=== PATIENT | male | born 1955 | race Caucasian/White ===

== ENCOUNTER → 2016-12-16 | Outpatient (CLI) | payer OTHER ==
[2016-12-16 10:07] LABS: CH 34.6; CHCM 33.7; HCT 46.5 % (39.0-53.0); HDW 2.52; HGB 15.7 gm/dL (13.0-17.5); MCH 34.8 pg (25.0-35.0); MCHC 33.8 g/dL (31.0-37.0); MCV 103.2 fL (80.0-100.0); Macrocytosis Slight; Mean Platelet Volume 7.1; WBC 6.3 k/uL (3.8-10.6)
[2016-12-16 11:20] LABS: Anion Gap 10 mmol/L; Blood Urea Nitrogen 16 mg/dL (9-20); Carbon Dioxide 24 mmol/L (22-30); Chloride 106 mmol/L (98-107); Non-African American GFR(MDRD) >60 (>60 ml/min/1.73 sqM); Potassium 5.1 mmol/L (3.5-5.1); Sodium 140 mmol/L (137-145)
== END | disposition home or self-care (01) ==
LOC: LABPAT 09:33
PROVIDERS: ATTEND Internal Medicine Interventional Cardiology
DX: Z01.812 Encounter for preprocedural laboratory examination (principal); R94.39 Abnormal result of other cardiovascular function study
CPT/HCPCS: 80051; 82565; 84520; 85027

== ENCOUNTER 2017-01-03 06:25 | Day surgery (SDC) | payer OTHER ==
[2016-12-30 11:50] VITALS: BMI 33.7
[~2017-01-03 06:25] MED LIST: ALPRAZolam 0.25 MG TAB PO PRN; ALPRAZolam 0.5 MG TAB PO PRN; ASPIRIN 325 MG TAB PO STA; ATORVASTATIN 80 MG TAB PO STA; NITROGLYCERIN SL TABS 0.4 MG TAB SUBLINGUAL PRN; SODIUM CHLORIDE 0.9% 1,000 ML in EMPTY BAG 1 BAG IV ONE
[2017-01-03 06:58] VITALS: TEMP 97.8
[2017-01-03] MEDS ORDERED: MIDAZOLAM 2 MG/2 ML VIAL ONE (07:13)
[2017-01-03] MEDS ORDERED: VERAPAMIL 2.5 MG/ML 2 ML AMP ONE (07:13)
[2017-01-03] MEDS ORDERED: LIDOCAINE 2% INJ 20 MG/ML (20 ML MDV) ONE (07:14)
[2017-01-03] MEDS ORDERED: diphenhydrAMINE 50 MG/ML 1 ML VIAL ONE (07:14)
[2017-01-03] MEDS ORDERED: diphenhydrAMINE 50 MG/ML 1 ML VIAL IVP ONE (07:39)
[2017-01-03] MEDS: MIDAZOLAM 2 MG/2 ML VIAL IV ONE ×2 (07:39→07:41)
[2017-01-03] MEDS ORDERED: HEPARIN SODIUM 1,000 UNIT/ML VIAL ONE (07:43)
[2017-01-03] MEDS ORDERED: LIDOCAINE 2% INJ 20 MG/ML SQ ONE (07:44)
[2017-01-03] MEDS ORDERED: HEPARIN SODIUM 1,000 UNIT/ML VIAL IV ONE (07:51)
[2017-01-03] MEDS: VERAPAMIL SYRINGE (5 MG/10 ML) IV ONE ×2 (07:51→08:08)
[2017-01-03] MEDS ORDERED: IOHEXOL 350 MG/ML 100 ML BOTTLE INJ ONE ×2 (08:04)
[2017-01-03] MEDS ORDERED: RX INFO: IV CONTRAST WAS GIVEN 1 EACH MISC MISCELLANE PRN (08:14)
[2017-01-03] MEDS ORDERED: SODIUM CHLORIDE 0.9% 1,000 ML IV SCH (08:15)
[2017-01-03 14:33] VITALS: BP 123/94; PULSE 101; RESP 18
--- NOTE | 2017-01-03 18:30 | CC ---
DATE OF SERVICE: 01/03/2017 PROCEDURE: Left heart catheterization, coronary angiography and left ventriculography. PERFORMED BY: Dr. Ginna Tirado. CLINICAL INFORMATION: Mr. Sy Shah is a 61-year-old gentleman with a known history of paroxysmal atrial flutter, status post radiofrequency ablation performed in the past. He also has paroxysmal atrial fibrillation, was on anticoagulation, but stopped it on his own. He came in to see me a few weeks ago with symptoms suggestive of exertional shortness of breath, and also there was evidence of AVNRT type picture as well on the Holter monitor. A stress test revealed a moderate-sized inferior wall ischemia with Lexiscan. He was advised cardiac catheterization prior to any electrophysiological procedures. He was brought in for the procedure electively. Risks, benefits, options and rationale were discussed with the patient and his at length. PROCEDURE NOTE: Under local anesthesia and strict aseptic precautions, a 6 Austrian introducer was placed in the right radial artery. Using an Ultima 2 catheter, I performed selective coronary angiography of the left coronary artery. Using a JR3.5, I performed selective injection of the right coronary. A pigtail catheter was used to perform LV gram. The catheter and sheath was taken out and a TR band applied as per protocol. Patient received 4000 units of heparin intravenously. He tolerated the procedure well without complications. He received conscious sedation and was monitored for half an hour. He received a combination of Versed and also Benadryl. CARDIAC CATHETERIZATION FINDINGS The left ventricular end-diastolic pressure was about 14 to 15 mmHg without any gradient across the aortic valve. CORONARY ANGIOGRAPHIC FINDINGS The left main coronary artery is a very short, patent, disease-free vessel that bifurcates into LAD and circumflex. Left anterior descending coronary artery is a good-caliber vessel that extends along the anterior wall, gives off a diagonal branch proximally. Free of significant disease, then it gives off a second diagonal branch, then another smaller third diagonal branch, then runs all the way to the apex, supplying a sizable amount of myocardium. All 3 diagonals are free of significant disease. A large septal is free of significant disease. There are minor irregularities in the LAD, which is a fairly large-distribution vessel. No significant disease is noted. Left posterior circumflex coronary artery. Technically a non-dominant vessel, it has a mid lesion of about 40% to 45%, after which it gives off an obtuse marginal and then continues as a posterolateral branch. Other than the mid lesion of about 40% to 45%, there were no other significant lesions noted in the circumflex system. Right coronary artery. This is a dominant vessel, has minor irregularities, about a 30% proximal narrowing, distally gives off a large PDA, a smaller PLV; minor irregularities. No significant disease. The RCA is a dominant vessel with a large PDA, but PLV is a very small vessel. No significant disease is noted. LEFT VENTRICULOGRAM: This was performed in 30-degree ALVAREZ projection. The LV was not filled completely. Catheter was almost in the outflow tract, but overall ejection fraction is about 50% without clear-cut wall motion abnormality. There is no mitral regurgitation of significance noted. FINAL IMPRESSION: This patient has a right-dominant system that has a 40% to 45% mid circumflex lesion and 50% ejection fraction. No other significant disease in the dominant RCA or LAD is noted. RECOMMENDATIONS: I am recommending continued medical therapy with risk factor modification. No intervention. He will be referred to Electrophysiology for EP studies and possible ablation for AVNRT and also assessment regarding atrial fibrillation intervention. I discussed my thoughts in detail with the patient as well as his . I expect he will be discharged later on today if he remains stable.
--- NOTE | 2017-01-03 18:34 | LTR ---
January 03, 2017 RE: Sy Shah Dear Dr. Arguelles, Thank you for the opportunity to participate in the care of Mr. Sy Shah. Please find enclosed my cardiac catheterization report for your records. He has non-critical moderate CAD in circumflex. I am recommending medical therapy with risk factor modification. His electrophysiological problems will be addressed by Dr. Hannah. 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 His stress test was probably a false positive one. I will also obtain echocardiogram to assess wall motion abnormalities, since my LV gram did not give me a good picture of this. Thank you for the referral. Please call with questions. Sincerely, FAITH OKEEFE MD
--- NOTE | 2017-01-04 12:40 | ECHOF ---
Referral Reason:CAD, AFIB MEASUREMENTS -------- HEIGHT: 185.4 cm WEIGHT: 122.5 kg BP: IVSd: 1.4 cm (0.6 - 1.1) LVIDd: 3.5 cm (3.9 - 5.3) LVPWd: 1.3 cm (0.6 - 1.1) IVSs: 1.6 cm LVIDs: 1.8 cm LVPWs: 1.6 cm Ao Diam: 3.5 cm (2.0 - 3.7) AV Cusp: 2.3 cm (1.5 - 2.6) LA Diam: 3.6 cm (2.7 - 3.8) MV EXCURSION: 15.965 mm (> 18.000) MV EF SLOPE: 133 mm/s (70 - 150) EPSS: 0.6 cm RAP: 5.00 mmHg RVSP: 12.43 mmHg FINDINGS -------- Atrial fibrillation. This was a technically adequate study. The left ventricular size is normal. There is moderate concentric left ventricular hypertrophy. Overall left ventricular systolic function is normal with, an EF between 55 - 60 %. The right ventricle is normal in size and function. The left atrium is normal in size. The right atrium is normal in size. The aortic valve is trileaflet, and appears structurally normal. No aortic stenosis or regurgitation. The mitral valve leaflets are mildly thickened. Mild mitral regurgitation is present. Trace tricuspid regurgitation present. The right ventricular systolic pressure, as measured by Doppler, is 12.43mmHg. The pulmonic valve was not well visualized. The aortic root size is normal. There is no pericardial effusion. CONCLUSIONS -------- 1. Atrial fibrillation. 2. The right ventricular systolic pressure, as measured by Doppler, is 12.43mmHg. 3. The pulmonic valve was not well visualized. 4. The aortic root size is normal. 5. There is no pericardial effusion. 6. This was a technically adequate study. 7. There is moderate concentric left ventricular hypertrophy. 8. Overall left ventricular systolic function is normal with, an EF between 55 - 60 %. 9. The left atrium is normal in size. 10. The aortic valve is trileaflet, and appears structurally normal. No aortic stenosis or regurgitation. 11. The mitral valve leaflets are mildly thickened. 12. Mild mitral regurgitation is present. 13. Trace tricuspid regurgitation present. HAND III CUTTER: Sonia Jason RDCS
== END 2017-01-03 14:40 | disposition home or self-care (01) ==
LOC: CATHCVL 06:25
PROVIDERS: ATTEND Internal Medicine Interventional Cardiology
DX: I48.0 Paroxysmal atrial fibrillation (principal); I08.1 Rheumatic disorders of both mitral and tricuspid valves; I25.10 Atherosclerotic heart disease of native coronary artery without angina pectoris; Z82.49 Family history of ischemic heart disease and other diseases of the circulatory system; R55 Syncope and collapse; F17.210 Nicotine dependence, cigarettes, uncomplicated; Z79.82 Long term (current) use of aspirin; Z79.52 Long term (current) use of systemic steroids; Z79.899 Other long term (current) drug therapy
CPT/HCPCS: 93306; 93458; 99152; 99153; C1769; C1894; J2001; J2250; J1200; Q9967; J1644

== ENCOUNTER 2017-02-03 09:12 | Observation (INO) | payer OTHER ==
[2017-02-02 11:09] VITALS: BMI 34.3
[~2017-02-03 09:12] MED LIST changes: -ALPRAZolam 0.25 MG TAB PO PRN; -ALPRAZolam 0.5 MG TAB PO PRN; -ASPIRIN 325 MG TAB PO STA; -ATORVASTATIN 80 MG TAB PO STA; -NITROGLYCERIN SL TABS 0.4 MG TAB SUBLINGUAL PRN; +SODIUM CHLORIDE 0.9% 1,000 ML IV SCH; -SODIUM CHLORIDE 0.9% 1,000 ML in EMPTY BAG 1 BAG IV ONE
[2017-02-03] MEDS ORDERED: LACTATED RINGERS 1,000 ML IV SCH (09:25)
[2017-02-03 09:52] LABS: Basophils # (A) 0.1 k/uL (0-0.2); Basophils % (A) 1 %; CH 35.6; CHCM 34.3; Eosinophils # (A) 0.2 k/uL (0-0.7); Eosinophils % (A) 3 %; HCT 49.6 % (39.0-53.0); HDW 2.43; HGB 16.3 gm/dL (13.0-17.5); Luc # (Auto) 0.13; Luc % (Auto) 2; Lymphocytes # (A) 2.1 k/uL (1.0-4.8); Lymphocytes % (A) 33 %; MCH 34.2 pg (25.0-35.0); MCHC 32.9 g/dL (31.0-37.0); MCV 104.2 fL (80.0-100.0); Macrocytosis Slight; Mean Platelet Volume 6.6; Monocytes # (A) 0.3 k/uL (0-1.0); Monocytes % (A) 5 %; Neutrophils # (A) 3.6 k/uL (1.3-7.7); Neutrophils % (A) 57 %; RBC 4.76 m/uL (4.30-5.90); RDW 14.3 % (11.5-15.5); WBC 6.3 k/uL (3.8-10.6); WBC (Perox) 6.07
[2017-02-03 10:01] LABS: Anion Gap 7 mmol/L; Blood Urea Nitrogen 13 mg/dL (9-20); Calcium 9.3 mg/dL (8.4-10.2); Carbon Dioxide 24 mmol/L (22-30); Chloride 110 mmol/L (98-107); Glucose 103 mg/dL (74-99); Non-African American GFR(MDRD) >60 (>60 ml/min/1.73 sqM); Sodium 141 mmol/L (137-145)
[2017-02-03 10:04] LABS: Potassium 4.5 mmol/L (3.5-5.1)
[2017-02-03] MEDS ORDERED: HYDROmorphone (PF) 1 MG/ML ONE (10:54)
[2017-02-03] MEDS ORDERED: ONDANSETRON 4 MG/2 ML VIAL ONE (10:54)
[2017-02-03] MEDS ORDERED: MIDAZOLAM 2 MG/2 ML VIAL ONE (10:54)
[2017-02-03] MEDS ORDERED: PROPOFOL 10 MG/ML 20 ML VIAL IV ONE (10:54)
[2017-02-03] MEDS ORDERED: IV FLUID CONTINUATION 800 ML IV ONE (10:54)
[2017-02-03] MEDS ORDERED: fentaNYL (PF) 50 MCG/ML 2 ML AMP ONE (10:54)
[2017-02-03] MEDS ORDERED: LIDOCAINE URO-JET JELLY 2% 5 ML KIT ONE (11:10)
[2017-02-03] MEDS ORDERED: LIDOCAINE URO-JET JELLY 2% 5 ML KIT URETHRAL ONE (11:22)
[2017-02-03] MEDS ORDERED: IOHEXOL 350 MG/ML 100 ML BOTTLE INJ ONE (11:41)
[2017-02-03] MEDS: LIDOCAINE 2% INJ 20 MG/ML SQ ONE ×2 (11:59→12:06)
[2017-02-03] MEDS ORDERED: ACETAMINOPHEN TAB 325 MG TAB PO PRN (13:55)
--- NOTE | 2017-02-03 14:56 | CE ---
DATE OF SERVICE: This is a 61-year-old male patient who has a history of: 1. Atrial flutter, status post ablation 7 years back and no recurrence. 2. Atrial fibrillation, paroxysmal, symptomatic. 3. 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 He is brought to the EP Lab on for management of SVT. The patient was brought to the EP Lab in a fasting state. Written informed consent was obtained prior to the procedure. He was in atrial fibrillation at the start of the study. A 6 Uzbek sheath was placed in the left ( ) vein and via this a decapolar catheter was positioned in the coronary sinus with pacing and recording. He was in atrial fibrillation. However, the ( ) ECG showed organized atrial activity but intracardiac electrograms are consistent with A. fib. The right ( ) was prepped and draped as per protocol and 3 venous sheaths were placed in the femoral vein via these (high right atrial catheter, HIS bundle catheter and RV catheter was placed.) First at the start of the study he was in atrial fibrillation, electrical cardioversion was performed under conscious sedation. He remained in sinus rhythm for only 10 to 15 seconds and there was recurrence of atrial fibrillation. Therefore, drug infusion was given, IV amiodarone was infused 300 mg over a total of 40 minutes. The patient continued to have paroxysms of atrial fibrillation, but once he had long appearance of sinus rhythm, an EP study was performed. Sinus cycle length 755 ms, QRS 90 ms, QT 371 ms, NJ interval 140 ms, AH interval 61 ms, HV interval 41 ms. Atrial straight pacing of the atrium was performed, straight pacing of the ventricle is performed. There was no evidence for delta waves and no evidence for any eccentric retrograde conduction. The retrograde conduction is midline, burst stimulation was performed in the atrium and the coronary sinus and the right ventricle. Slow pathway was demonstrated with echo beats; however, when ( ) protocol was used, atrial fibrillation was induced, then spontaneously terminated after several minutes. Therefore, a long sheath was placed and a mapping ablation catheter was placed. Three-D mapping was performed. ( ) was identified and tagged and the coronary sinus also was identified and tagged. Both in the roof and the floor, a slow pathway was mapped during periods of sinus rhythm, RF ablation was performed in a slow pathway area, occasional junctional beats are noted. The patient continued to have less and less A. fib as time went along but whenever A. fib was induced during RF ablation, RF would be terminated and would be performed only during sinus rhythm. The NJ interval remained stable. Following this, AV node Wenckebach block was 400 ms and the coronary sinus VA Wenckebach block was also 400 ms. There was no evidence for slow pathway conduction or echo beats. All catheters were then removed. The patient was transferred back to telemetry. Anticoagulation was continued. IMPRESSION: 1. Patient has immediate recurrence of atrial fibrillation following electrical cardioversion requiring IV amiodarone for suppression, so as to enable an EP study and mapping and ablation with slow pathway. 2. Slow pathway ablation at the level of the coronary sinus just outside it anteriorly. PLAN: The patient continues to have paroxysms of atrial fibrillation with immediate recurrence following electrical cardioversion. I would recommend since he also complains of being very symptomatic during these episodes with shortness of breath as well as palpitations, suggest cryoablation should be considered for atrial fibrillation with immediate recurrence following electrical cardioversion.
--- NOTE | 2017-02-03 14:59 | LTR ---
February 03, 2017 RE: Sy Shah Angelita Dear Dr. Arguelles: I had the pleasure of seeing Mr. Sy Shah in electrophysiology followup. Mr. Shah underwent successful ablation of the slow pathway for AV linh re-entry. However, he also has atrial fibrillation and when I cardioverted him electrically, he had immediate recurrence of atrial fibrillation within 5 to 10 seconds suggestive of possible pulmonary vein focus. He is quite symptomatic from atrial fibrillation and besides palpitations, he also becomes very short of breath. I would recommend isolation of the pulmonary veins, possibly cryoablation to him. If you have any questions, please do not hesitate to give me a call. Sincerely, ALISSA HIGGINS MD
[2017-02-03] MEDS ORDERED: ACETAMINOPHEN IV (For NPO) 1,000 MG in EMPTY BAG 1 BAG IVPB ONE (16:00)
[2017-02-03] MEDS ORDERED: ONDANSETRON 4 MG/2 ML VIAL IVP PRN (19:49)
[2017-02-03] MEDS ORDERED: rOPINIRole HCL 4 MG TABLET PO SCH (21:00)
[2017-02-03] MEDS ORDERED: CYCLOBENZAPRINE 10 MG TAB PO SCH (21:00)
[2017-02-03] MEDS ORDERED: HYDROcodone/APAP 5-325MG 1 EACH TAB PO PRN (21:14)
[2017-02-03] MEDS ORDERED: METOCLOPRAMIDE 5 MG/ML 2 ML VIAL IVP PRN (22:17)
[2017-02-03 23:27] VITALS: RESP 18
[2017-02-04] MEDS ORDERED: METOCLOPRAMIDE 5 MG/ML 2 ML VIAL IVP SCH
[2017-02-04] MEDS: METOPROLOL TARTRATE 50 MG TAB PO SCH ×2 (01:56→03:55)
--- NOTE | 2017-02-04 08:28 | P.DS ---
Providers Date of admission: 02/03/17 21:25 Attending physician: Ata Hannah Primary care physician: Sherri [place] Hospital Course: Patient is doing well this morning. He has no chest discomfort no dizziness no lightheadedness No pleuritic chest discomfort no JVD blood pressure is normal 133/75 mmHg Yesterday evening after the SVT ablation he had bursts of A. 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 He continues to have symptomatic episodes despite propafenone yesterday had to use amiodarone 300 mg IV which barely controlled it and gave me time to perform an EP study and mapped the slow pathway in sinus rhythm did he continues to have episodes of atrial fibrillation on the current dose of propafenone at home He came in with atrial fibrillation requiring electrical cardioversion but had immediate recurrence of atrial fibrillation Suggest Resume anticoagulation, resume beta blockers and propafenone Pulmonary vein isolation should be considered I discussed this with the patient Thereafter propafenone should be continued to suppress any extra pulmonary foci of A. fib He may go home today and go back to work on Tuesday Patient Condition at Discharge: Stable Plan - Discharge Summary Discharge Medication List RX: Citalopram Hydrobromide [CeleXA] 20 mg PO DAILY 12/30/16 [History] RX: Fludrocortisone [Florinef] 0.1 mg PO DAILY 12/30/16 [History] RX: Metoprolol Tartrate [Lopressor] 50 mg PO BID 12/30/16 [History] RX: Propafenone [Rythmol] 225 mg PO BID 12/30/16 [History] RX: Rivaroxaban [Xarelto] 20 mg PO DAILY 12/30/16 [History] RX: Cyclobenzaprine [Flexeril] 10 mg PO HS 01/03/17 [History] RX: HYDROcodone/APAP 10-325MG [[place] 10-325] 1 tab PO Q6H PRN 01/03/17 [History] RX: rOPINIRole HCL 4 mg PO HS 01/03/17 [History] RX: Cetirizine HCl [Zyrtec] 10 mg PO DAILY 02/02/17 [History] RX: Cholecalciferol [Vitamin D3] 3,000 unit PO DAILY 02/02/17 [History] RX: Multivitamin with Iron [Multivitamins with Iron] 1 tab PO DAILY 02/02/17 [ History] RX: Vitamin B Complex 1 cap PO DAILY 02/02/17 [History] Cyanocobalamin [Vitamin B-12] 500 mcg PO DAILY 02/03/17 [History] Fexofenadine HCl [Helen Allergy] 180 mg PO DAILY PRN 02/03/17 [History] Activity/Diet/Wound Care/Special Instructions: Post EP study - Ablation instructions 1. Keep access sites dry for 2 days. 2. No heavy lifting or straining for 2 days. 3. Avoid bending the hips repeatedly for 2 days. 4. You may go up and down stairs slowly Call if the following is noted 1. Bleeding, increasing swelling or pain at the access sites. 2. Increasing chest discomfort, especially upon taking a deep breath. 3. Increasing shortness of breath, at rest or with exertion. 4. Undue cough / phlegm 5. Difficulty or pain while swallowing. 6. Pain or change in color in the extremities. 7. Fever, chills, rigors. 8. Increasing headache or neurologic symptoms. 9. Dizziness, fainting, palpitations
[2017-02-04 08:29] VITALS: BP 139/79; PULSE 96; TEMP 98.7
[2017-02-04] MEDS ORDERED: RIVAROXABAN 10 MG TAB PO SCH (09:00)
[2017-02-04] MEDS ORDERED: FLUDROCORTISONE 0.1 MG TAB PO SCH (09:00)
[2017-02-04] MEDS ORDERED: CITALOPRAM HYDROBROMIDE 20 MG TAB PO SCH (09:00)
== END 2017-02-04 11:13 | disposition home or self-care (01) ==
LOC: CATHEP 09:12 → 3OBS 13:44 → CATHEP 21:25
PROVIDERS: ADMIT Internal Medicine Clinical Cardiac Electrophysiology; ATTEND Internal Medicine Clinical Cardiac Electrophysiology
DX: I48.0 Paroxysmal atrial fibrillation (principal); I47.1 Supraventricular tachycardia; I48.92 Unspecified atrial flutter; Z79.82 Long term (current) use of aspirin; Z79.899 Other long term (current) drug therapy; I25.10 Atherosclerotic heart disease of native coronary artery without angina pectoris; Z79.52 Long term (current) use of systemic steroids; E78.5 Hyperlipidemia, unspecified; E66.9 Obesity, unspecified; F17.210 Nicotine dependence, cigarettes, uncomplicated; Z68.34 Body mass index [BMI] 34.0-34.9, adult; Z79.01 Long term (current) use of anticoagulants; G47.33 Obstructive sleep apnea (adult) (pediatric); N40.0 Benign prostatic hyperplasia without lower urinary tract symptoms; G25.81 Restless legs syndrome; F39 Unspecified mood [affective] disorder
CPT/HCPCS: 96365; 93005; 92960; 93623; 93613; 93653; 80048; 85025; G0378 ×2; C1894; C1769; C1730 ×2; C1893; C1732; J2001; J2250; J2765; Q9967; J2405; J3010; J1170; J0131; J2704

== ENCOUNTER 2017-03-22 09:51 | Observation (INO) | payer OTHER ==
[2017-03-17 15:02] VITALS: BMI 34.3
[2017-03-22] MEDS: SODIUM CHLORIDE 0.9% 1,000 ML IV SCH (11:00)
[2017-03-22 11:21] LABS: Basophils % (A) 0 %; CH 35.4; CHCM 33.9; Eosinophils # (A) 0.1 k/uL (0-0.7); Eosinophils % (A) 1 %; HCT 44.3 % (39.0-53.0); HDW 2.33; HGB 14.7 gm/dL (13.0-17.5); Luc # (Auto) 0.18; Luc % (Auto) 2; Lymphocytes # (A) 2.4 k/uL (1.0-4.8); Lymphocytes % (A) 30 %; MCH 34.8 pg (25.0-35.0); MCHC 33.2 g/dL (31.0-37.0); MCV 104.7 fL (80.0-100.0); Macrocytosis Slight; Mean Platelet Volume 6.9; Monocytes # (A) 0.4 k/uL (0-1.0); Monocytes % (A) 5 %; Neutrophils # (A) 5.1 k/uL (1.3-7.7); Neutrophils % (A) 62 %; RBC 4.23 m/uL (4.30-5.90); WBC 8.2 k/uL (3.8-10.6); WBC (Perox) 8.25
[2017-03-22 11:36] LABS: Anion Gap 8 mmol/L; Blood Urea Nitrogen 22 mg/dL (9-20); Carbon Dioxide 25 mmol/L (22-30); Chloride 107 mmol/L (98-107); Glucose 86 mg/dL (74-99); Non-African American GFR(MDRD) >60 (>60 ml/min/1.73 sqM); Potassium 4.3 mmol/L (3.5-5.1); Sodium 140 mmol/L (137-145)
[2017-03-22] MEDS ORDERED: SUCCINYLCHOLINE CHLORIDE VIAL 200 MG/10 ML VIAL IV ONE (12:06)
[2017-03-22] MEDS ORDERED: HEPARIN SODIUM 1,000 UNIT/ML VIAL ONE (12:06)
[2017-03-22] MEDS ORDERED: LIDOCAINE 1% INJ 10MG/ML (20 ML MDV) ONE (12:06)
[2017-03-22] MEDS ORDERED: HEPARIN SODIUM,PORCINE 5,000 UNIT/ML 1 ML VIAL ONE (12:06)
[2017-03-22] MEDS ORDERED: ATROPINE SULFATE 0.1 MG/ML 10ML SYRINGE ONE (12:06)
[2017-03-22] MEDS ORDERED: PROPOFOL 10 MG/ML 20 ML VIAL IV ONE (12:06)
[2017-03-22] MEDS ORDERED: fentaNYL (PF) 50 MCG/ML 2 ML AMP ONE (12:06)
[2017-03-22] MEDS ORDERED: MIDAZOLAM 2 MG/2 ML VIAL ONE (12:06)
[2017-03-22] MEDS ORDERED: FUROSEMIDE 10 MG/ML 2 ML VIAL ONE (12:06)
[2017-03-22] MEDS ORDERED: ISOPROTERENOL 250 MCG/1.25 ML SYR IV ONE (12:06)
[2017-03-22] MEDS ORDERED: PHENYLEPHRINE-0.9% NACL SYG 1 MG/10 ML SYRINGE ONE (12:06)
[2017-03-22] MEDS ORDERED: ONDANSETRON 4 MG/2 ML VIAL ONE (12:06)
[2017-03-22] MEDS ORDERED: LIDOCAINE URO-JET JELLY 2% 5 ML KIT URETHRAL ONE (12:40)
[2017-03-22] MEDS ORDERED: LIDOCAINE 2% INJ 20 MG/ML SQ ONE (13:05)
[2017-03-22] MEDS ORDERED: HEPARIN SODIUM,PORCINE/D5W PMX 25,000 UNIT in DEXTROSE/WATER 1 500ML.BAG IV ONE (13:08)
[2017-03-22] MEDS ORDERED: IOHEXOL 350 MG/ML 100 ML BOTTLE INJ ONE (15:00)
[2017-03-22] MEDS ORDERED: ACETAMINOPHEN TAB 325 MG TAB PO PRN (15:06)
[2017-03-22] MEDS ORDERED: PROTAMINE SULFATE 10 MG/ML 5 ML VIAL IV ONE (15:07)
--- NOTE | 2017-03-22 16:34 | CE ---
DATE OF SERVICE: DATE OF CONSULTATION: Mr. Shah is a 61 -year-old patient who has paroxysmal atrial fibrillation, symptomatic. He is brought in for pulmonary vein isolation with cryoablation. The patient was brought to the EP lab in a fasting state. Written informed consent was obtained prior to the procedure. The procedure was performed under general anesthesia. Initially after initial muscle relaxants were used, muscle relaxants were not given thereafter so as to be able to in order to assess phrenic nerve integrity during the procedure. Patient was prepped and draped as per protocol. A full cryo set up with standard prep of the cryo tools was performed. Femoral access was obtained via the right and left groins. Two venous sheaths in the left groins, one venous sheath in the right groin and femoral arterial line for hemodynamic monitoring and sampling. AST maintained about 300. Blood pressure remained stable throughout the procedure. After venous sheaths were placed, diagnostic and mapping ablation catheters were placed in the high right atrium, high SVC, His bundle area, and coronary sinus, RV and left atrium. Intracardiac echocardiography was performed and the atrial septum was identified, pulmonary veins were identified. Transseptal catheterization was performed. RA pressure was 16/7/12 mmHg, LA pressure 23/14 mmHg. After gaining transseptal access, sheath was exchanged for the cryoablation sheath and the cryo balloon was placed in the left atrium. The pulmonary veins were sequentially isolated, left followed by right, superior followed by inferior. All 4 pulmonary veins were isolated and the isthmus of pulmonary veins was noted within the first 70 to 80 seconds of the lesions. The left superior pulmonary vein received two lesions, 120 second and 180 seconds. Vein is completely isolated. Left inferior vein and received 2 lesion sets, 133 seconds and 180 seconds. Phrenic nerve stimulation was performed during right-sided ablation. The right superior vein received 90 second lesion followed by 180, followed by 180 second lesion set with complete isolation of the veins during the ablation. The right inferior pulmonary vein also received 2 lesion sets, 184 followed by 180 seconds each. The vein was completely isolated. Following that, mapping of veins was performed, complete entrance block was noted during CS pacing. Following that, full EP study was performed. Sinus cycle length 1056 ms, OK interval 112 ms, QRS 108 ms, QT 493 ms. AH interval 76 ms, HV interval 40 ms. Sinus node recovery times at 600, 500 and 400 ms were 1201, 1201 and 1290 ms, VA Wenckebach block was 60 ms, AV node Wenckebach block 370 ms. Isuprel was started wide open for 3 to 4 minutes. No spontaneous atrial fibrillation was noted. Atrial pacing was performed, AV Wenckebach block 280 ms. No arrhythmia was induced. Heparin was reversed. Phrenic nerve integrity was interrogated. Intracardiac echocardiography revealed no evidence of pericardial effusion. The patient was extubated, venous sheaths were removed. Hemostasis was assured. Procedures performed: 1. Invasive hemodynamic monitoring under general anesthesia with right femoral artery monitoring and sampling. 2. Comprehensive diagnostic EP study with attempted arrhythmia induction. 3. CS pacing and recording. 4. Drug infusion. 5. Catheter mapping of the pulmonary veins. 6. Intracardiac echo. 7. Left and right transseptal catheterization. 8. Pulmonary isolation with transseptal and comprehensive of EP study with cryoablation. The patient tolerated the procedures well without any acute complications. PLAN: Continue anticoagulation. Continue low dose Rythmol 225 ( ) 25 mg p.o. b.i.d.
--- NOTE | 2017-03-22 16:36 | LTR ---
March 22, 2017 RE: Alyssa Sy Angelita Dear Dr. Arguelles: I had the pleasure of seeing Mr. Sy Shah in electrophysiology follow-up. Mr. Shah underwent successful isolation of the pulmonary veins using cryoablation. He has already undergone atrial flutter ablation a few months back. We will continue anticoagulation lifelong and continue low dose Rythmol SR 225 mg b.i.d. He will follow with you and with Dr. Ginna Tirado as before. Thank you for entrusting us with the care of your patient. Warm regards, Sincerely, ALISSA HIGGINS MD
[2017-03-22] MEDS ORDERED: ACETAMINOPHEN IV (For NPO) 1,000 MG in EMPTY BAG 1 BAG IVPB ONE (17:00)
[2017-03-22] MEDS ORDERED: NON-FORMULARY DRUG (Fexofenadine Hcl [Allegra Allergy] 180 MG) PO PRN (17:40)
[2017-03-22] MEDS: HYDROmorphone 1 MG/ML 1 ML SYRINGE IVP PRN ×2 (17:44→23:11)
[2017-03-22] MEDS: ONDANSETRON 4 MG/2 ML VIAL IVP PRN ×2 (17:50→23:12)
[2017-03-22] MEDS: PANTOPRAZOLE 40 MG TABLET PO SCH (18:21)
[2017-03-22] MEDS: PROPAFENONE 225 MG TAB PO SCH (20:43)
[2017-03-22] MEDS: HYDROcodone/APAP 5-325MG 1 EACH TAB PO PRN (20:43)
[2017-03-22] MEDS: METOPROLOL TARTRATE 50 MG TAB PO SCH (20:43)
[2017-03-22] MEDS: CYCLOBENZAPRINE 10 MG TAB PO SCH (22:13)
[2017-03-22] MEDS: rOPINIRole HCL 4 MG TABLET PO SCH (22:13)
[2017-03-23] MEDS: SODIUM CHLORIDE 0.9% 1,000 ML IV SCH (02:46)
[2017-03-23] MEDS: HYDROcodone/APAP 5-325MG 1 EACH TAB PO PRN ×3 (06:09→20:24)
[2017-03-23] MEDS: PANTOPRAZOLE 40 MG TABLET PO SCH ×2 (06:10→16:50)
[2017-03-23] MEDS ORDERED: RX INFO: IV CONTRAST WAS GIVEN 1 EACH MISC MISCELLANE PRN (07:55)
[2017-03-23] MEDS: LORATADINE 10 MG TAB PO SCH (08:15)
[2017-03-23] MEDS: RIVAROXABAN 10 MG TAB PO SCH (08:15)
[2017-03-23] MEDS: FLUDROCORTISONE 0.1 MG TAB PO SCH (08:15)
[2017-03-23] MEDS: METOPROLOL TARTRATE 50 MG TAB PO SCH ×2 (08:15→20:24)
[2017-03-23] MEDS: CITALOPRAM HYDROBROMIDE 20 MG TAB PO SCH (08:15)
[2017-03-23] MEDS: PROPAFENONE 225 MG TAB PO SCH ×2 (08:15→20:24)
[2017-03-23] MEDS: IOHEXOL 350 MG/ML 25 ML BOTTLE (ORAL USE) PO PRN ×2 (09:04→10:02)
--- NOTE | 2017-03-23 09:10 | PN ---
Mr. Shah is doing well. Yesterday evening he was complaining of abdominal discomfort and some tenderness in his belly, although there was no rebound or guarding. The abdominal discomfort is left-sided, probably left lower quadrant. I do not feel any mass or swelling. His groins have healed well. There is no hematoma this morning. He still has some tenderness in that region. His abdominal pain is better, treated with Dilaudid and given some Reglan and Pepcid. He is in sinus rhythm. He underwent cryoablation yesterday, successfully denies any chest discomfort. No breathing trouble. He has no chest symptoms at all. IMPRESSION: 1. Paroxysmal atrial fibrillation, status post cryoablation of the pulmonary veins. 2. History of atrial flutter, status post ablation. 3. Abdominal pain and tenderness in the left lower quadrant without any groin problems. Suggest CT abdomen with contrast to assess for any intra-abdominal pathology as well as for retroperitoneal bleed. His blood pressure has been stable. Breath sounds are normal. Heart sounds are normal. No murmur, no gallops. Blood pressure 107/64 mmHg. Heart rate in the 60's. He is afebrile. PLAN: If his abdominal CT is within normal limits, then later on today he should be able to go home by around 6:00 in the evening and follow with Dr. Tirado in about 5 days.
--- NOTE | 2017-03-23 10:56 | CT ---
EXAMINATION TYPE: CT abdomen pelvis w con DATE OF EXAM: 03/23/2017 COMPARISON: NONE INDICATION: Patient complains of LUQ pain. DLP: 2036.2 mGycm, Automated exposure control for dose reduction was used. CONTRAST: 100 mL of Omnipaque 300. Study performed with Oral Contrast TECHNIQUE: Axial images were obtained from above the diaphragm to the pubic rami in the axial plane a t 5 mm thick sections. Reconstructed images are reviewed on the computer in the coronal plane. FINDINGS: Limited CT sections are obtained the lung bases. Some very minimal pleural effusion may be present.. Minimal streak atelectasis may be above the right diaphragm. CT ABDOMEN: Liver: Normal Spleen: Normal Pancreas: Normal Adrenal glands: The adrenal glands are normal. Gallbladder: Normal Kidneys: No masses are evident. No hydronephrosis is present. No cysts are present. Delayed images were obtained through the kidneys, which remain unremarkable. Aorta: Vascular calcification is within the aorta. Inferior vena cava: Normal. CT PELVIS: Loops of bowel within the abdomen and pelvis are normal. There are loops of bowel which are incom pletely distended or lack oral contrast limiting their evaluation. Diverticular changes are within th e sigmoid colon. Appendix: Normal as visualized. Urinary bladder: Tiny amount of air is within the urinary bladder. Correlate for recent instrumentati on. Genitourinary structures: Prostate is unremarkable. Osseous structures: No suspicious lytic or sclerotic lesions. Degenerative changes are within the sco liotic lumbar spine. Degenerative disc changes are present. IMPRESSIONS: 1. No suspicious changes to suggest an etiology for left upper quadrant pain. 2. Diverticulosis without acute diverticulitis sigmoid colon. 3. Very minimal pleural effusions. Mild atelectasis may be at the left base.
[2017-03-23] MEDS: CYANOCOBALAMIN 500 MCG TAB PO SCH (11:45)
[2017-03-23] MEDS: CHOLECALCIFEROL 1,000 UNIT TAB PO SCH (11:45)
[2017-03-23] MEDS: B COMPLEX-VIT C-VIT E-ZINC 1 EACH TAB PO SCH (11:45)
[2017-03-23] MEDS: MULTIVITAMINS, THERA 1 EACH TAB PO SCH (11:45)
[2017-03-23 16:29] LABS: Glucose,Whole Blood 101 mg/dL (75-99)
[2017-03-23] MEDS: CYCLOBENZAPRINE 10 MG TAB PO SCH (20:24)
[2017-03-23] MEDS: rOPINIRole HCL 4 MG TABLET PO SCH (20:24)
[2017-03-24] MEDS: HYDROcodone/APAP 5-325MG 1 EACH TAB PO PRN ×2 (03:22→11:17)
[2017-03-24] MEDS: SODIUM CHLORIDE 0.9% 1,000 ML IV SCH (05:43)
[2017-03-24] MEDS: PANTOPRAZOLE 40 MG TABLET PO SCH (06:26)
[2017-03-24] MEDS: RIVAROXABAN 10 MG TAB PO SCH (09:02)
[2017-03-24] MEDS: METOPROLOL TARTRATE 50 MG TAB PO SCH (09:02)
[2017-03-24] MEDS: PROPAFENONE 225 MG TAB PO SCH (09:02)
[2017-03-24] MEDS: LORATADINE 10 MG TAB PO SCH (09:03)
[2017-03-24] MEDS: CITALOPRAM HYDROBROMIDE 20 MG TAB PO SCH (09:03)
[2017-03-24] MEDS: FLUDROCORTISONE 0.1 MG TAB PO SCH (09:03)
[2017-03-24 10:47] VITALS: RESP 18
[2017-03-24] MEDS: CYANOCOBALAMIN 500 MCG TAB PO SCH (11:21)
[2017-03-24] MEDS: CHOLECALCIFEROL 1,000 UNIT TAB PO SCH (11:21)
[2017-03-24] MEDS: B COMPLEX-VIT C-VIT E-ZINC 1 EACH TAB PO SCH (11:21)
[2017-03-24] MEDS: MULTIVITAMINS, THERA 1 EACH TAB PO SCH (11:21)
[2017-03-24 12:26] VITALS: BP 131/89; PULSE 63; TEMP 96.5
--- NOTE | 2017-03-24 16:29 | P.GSCN ---
History of Present Illness Consult date: 03/24/17 Reason for Consult: Abdominal pain History of present illness: We were seen on consult for the patient's recent complaints of abdominal pain. Pain began the evening of his cardiac ablation. The pain was primarily in the left midabdomen and left lower quadrant. The patient states the pain improved yesterday and this morning is even better. No nausea or vomiting. No change in bowel habits. Denies rectal bleeding. CT abdomen and pelvis was reviewed and shows no definite etiology to explain the patient's symptoms. Patient felt like coughing and movement aggravated the pain. He is tolerating his diet currently. Hemoglobin has been stable. White blood cell count is normal. Review of Systems The patient denies any acute changes in his vision or hearing, no dysphagia or odynophagia, no chest pain or shortness of breath, no dysuria or hematuria, no headache, no runny nose, no rectal bleeding or melena, no unexplained weight loss Past Medical History Past Medical History: Osteoarthritis (OA), Prostate Disorder, Sleep Apnea/CPAP/ BIPAP Additional Past Medical History / Comment(s): RESTLESS LEG SYNDROME, SLEEP APNEA (STATES UNABLE TO USE MASK), VARICOSE VEIN., STATES BACK,SHOULDER, WRIST AND ELBOW PAIN., LOW IRON, ALLERGIES, ARRTHYMIA, SEE CARDIOLOGY H & P. History of Any Multi-Drug Resistant Organisms: None Reported Past Surgical History: Cardiac Ablation, Heart Catheterization, Hernia Repair, Tonsillectomy Additional Past Surgical History / Comment(s): COLONOSCOPY, CYST REMOVED FROM SPINE Past Anesthesia/Blood Transfusion Reactions: Postoperative Nausea & Vomiting ( PONV) Past Psychological History: Anxiety, Depression Smoking Status: Current every day smoker Past Alcohol Use History: Rare Additional Past Alcohol Use History / Comment(s): HAS SMOKED 1/2 PPD SINCE 1971 Past Drug Use History: None Reported - Past Family History Mother Family Medical History: No Reported History Medications and Allergies Home Medications Medication Instructions Recorded Confirmed Type Citalopram Hydrobromide [CeleXA] 20 mg PO DAILY 12/30/16 03/23/17 History Fludrocortisone [Florinef] 0.1 mg PO DAILY 12/30/16 03/23/17 History Metoprolol Tartrate [Lopressor] 50 mg PO BID 12/30/16 03/23/17 History Propafenone [Rythmol] 225 mg PO BID 12/30/16 03/23/17 History Rivaroxaban [Xarelto] 20 mg PO DAILY 12/30/16 03/23/17 History Cyclobenzaprine [Flexeril] 10 mg PO HS 01/03/17 03/23/17 History HYDROcodone/APAP 10-325MG [[place] 1 tab PO Q6H PRN 01/03/17 03/23/17 History 10-325] rOPINIRole HCL 4 mg PO HS 01/03/17 03/23/17 History Cetirizine HCl [Zyrtec] 10 mg PO DAILY 02/02/17 03/23/17 History Cholecalciferol [Vitamin D3] 3,000 unit PO DAILY 02/02/17 03/23/17 History Multivitamin with Iron 1 tab PO DAILY 02/02/17 03/23/17 History [Multivitamins with Iron] Vitamin B Complex 1 cap PO DAILY 02/02/17 03/23/17 History Cyanocobalamin [Vitamin B-12] 500 mcg PO DAILY 02/03/17 03/23/17 History Fexofenadine HCl [Helen Allergy] 180 mg PO DAILY PRN 02/03/17 03/23/17 History Allergies Allergy/AdvReac Type Severity Reaction Status Date / Time No Known Allergies Allergy Verified 03/17/17 15:00 Surgical - Exam Vital Signs Temp Pulse Resp BP Pulse Ox 98.0 F 52 L 16 130/81 96 03/22/17 10:20 03/22/17 10:20 03/22/17 10:20 03/22/17 10:20 03/22/17 10:20 Physical exam: General: Well-developed, well-nourished HEENT: Normocephalic, sclerae nonicteric Abdomen: Very mild left lower quadrant tenderness, nondistended Extremities: No edema, bilateral groin without sizable hematoma Neuro: Alert and oriented Results - Labs 03/22/17 10:15 03/22/17 10:15 Abnormal Lab Results - Last 24 Hours (Table) 03/23/17 Range/Units 16:27 POC Glucose (mg/dL) 101 H (75-99) mg/dL Assessment and Plan (1) Abdominal pain Narrative/Plan: Etiology of the patient's abdominal pain unclear. Suspect possible musculoskeletal strain related to the surgical intervention. Continue diet as tolerated. She'll follow up with me as an outpatient if his symptoms increase. Stable for discharge at this time. Status: Acute
--- NOTE | 2017-03-24 17:07 | DS ---
DATE OF ADMISSION: 03/23/2017 DATE OF DISCHARGE: 03/24/2017 Mr. Shah underwent successful cryoablation day before yesterday. Yesterday he was supposed to be discharged, but he started complaining of abdominal discomfort. This was mostly left-sided. He underwent a CT scan of the abdomen and pelvis with contrast. There was no evidence for any retroperitoneal bleed. Diverticulosis was noted. There was no evidence of any inflammation. His pain continued; therefore he was kept overnight. The pain was quite significant and he was a bit tender, both at the renal angle as well as anteriorly on the left side; therefore I called Dr. Rivera for an evaluation. He was evaluated by Dr. Rivera and was okayed for discharge. His vitals are stable. Head and neck examination is normal. Heart sounds are normal. Breath sounds are normal. Abdomen was soft, but there was tenderness, especially at the renal angle as well as anteriorly along the left side. PLAN: Follow up with Dr. Tirado in about a week's time. Follow up with primary care physician in a week. Continue all cardiac medications, including anticoagulation.
== END 2017-03-24 15:35 | disposition home or self-care (01) ==
LOC: CATHEP 09:51 → 6SEL 15:17 → CATHEP 03-23 05:12 → 6SEL 03-23 05:12
PROVIDERS: ADMIT Internal Medicine Clinical Cardiac Electrophysiology; ATTEND Internal Medicine Clinical Cardiac Electrophysiology
DX: I48.0 Paroxysmal atrial fibrillation (principal); K57.90 Diverticulosis of intestine, part unspecified, without perforation or abscess without bleeding; I48.92 Unspecified atrial flutter; G47.30 Sleep apnea, unspecified; N42.9 Disorder of prostate, unspecified; M19.90 Unspecified osteoarthritis, unspecified site; I25.10 Atherosclerotic heart disease of native coronary artery without angina pectoris; I48.3 Typical atrial flutter; F17.210 Nicotine dependence, cigarettes, uncomplicated; E66.9 Obesity, unspecified; E78.5 Hyperlipidemia, unspecified; F41.9 Anxiety disorder, unspecified; F32.9 Major depressive disorder, single episode, unspecified; Z79.01 Long term (current) use of anticoagulants; Z79.899 Other long term (current) drug therapy; Z68.34 Body mass index [BMI] 34.0-34.9, adult
CPT/HCPCS: 93623; 93662; 93609; 93656; 85347; 80048; 85025; 74177; G0378 ×2; C1894 ×3; C1769 ×2; C1730 ×3; C1759; C1893; C1733; C1766; J2001 ×2; J2250; J0330; J1644 ×3; J1940; Q9967 ×2; J2405; J0461; J3010; J1170; J2370; J2704

== ENCOUNTER → 2020-04-07 | Outpatient (CLI) | payer OTHER ==
--- NOTE | 2020-04-08 08:53 | CTL ---
EXAMINATION TYPE: CT Low Dose Lung DATE OF EXAM ORDERED: 04/07/2020 HISTORY: 64-year-old male Personal hx of tobacco use. Lung cancer screening CT DLP: 145.[address] CTDI: 4.0 mGy Automated exposure control for dose reduction was used. SCREENING VISIT: Baseline COMPARISON: None TECHNIQUE: Low dose computed tomography scan was performed through the chest at 1 mm thick sections a nd reconstructed images in the coronal and sagittal plane. CT DIAGNOSTIC QUALITY: Satisfactory FINDINGS: Heart normal size without pericardial effusion. Mild three-vessel coronary artery calcifications are present. Thoracic aorta normal caliber with bovine configuration to the aortic arch. Scattered nonenlarged mediastinal lymph nodes are present measuring up to 8 mm in the precarinal eufemia on a 7 mm AP window. No thoracic lymphadenopathy by CT size criteria. Minimal centrilobular emphysema. Band of atelectasis or scarring along the periphery of the right mid lung. 4 mm posterior left upper lobe pulmonary nodule, axial image 82. 7 mm endobronchial nodule along the posterior wall of the upper bronchus intermedius, axial image 124 . This could represent a mucosal lesion or adherent mucoid debris. No consolidation or pleural effusion. Visualized upper abdomen shows no gross abnormality by noncontrast low-dose technique. Bones: Mild endplate spondylosis mid to lower thoracic spine. IMPRESSION: 1. LungRADS Category 3 (probably benign, 1-2% chance of malignancy). 7 mm mural-based, endobronchial nodule posterior wall of the upper bronchus intermedius could represent adherent mucoid debris. Moses tional 4 mm left lobe pulmonary nodule. RECOMMENDATION: 1. SIX-MONTH FOLLOW-UP LOW-DOSE CT FOR THE 7 MM AND 4 MM NODULES. 2. SMOKING CESSATION. FOLLOW UP CT CHEST RECOMMENDATION: [address] LUNG RAD: Lung-Rad 3 Probably Benign
== END | disposition home or self-care (01) ==
LOC: RADCTMAIN 17:23
PROVIDERS: ATTEND Family Medicine
DX: Z12.2 Encounter for screening for malignant neoplasm of respiratory organs (principal); R91.8 Other nonspecific abnormal finding of lung field; Z87.891 Personal history of nicotine dependence

== ENCOUNTER → 2020-05-30 | Outpatient (CLI) | payer OTHER ==
[~2020-05-30] MED LIST changes: +REGADENOSON 0.4 MG/5 ML SYRINGE IV ONE; -SODIUM CHLORIDE 0.9% 1,000 ML IV SCH
--- NOTE | 2020-05-30 12:51 | NM ---
EXAMINATION TYPE: NM stress lexiscan cardiolite DATE OF EXAM: 05/30/2020 COMPARISON: NONE HISTORY: Precordial chest pain and abnormal EKG TECHNIQUE: After the intravenous administration of 10.63 mCi Tc 99m Sestamibi - Cardiolite resting S PECT images acquired 80 minutes post injection. The patient received 0.4mg Lexiscan, 27.3 mCi Tc 99m Sestamibi - Stress images obtained [address] injection FINDINGS: Review of stress and rest SPECT images demonstrates no distinct perfusion abnormality. Gated analysi s shows normal wall motion with an estimated left ventricular ejection fraction of 49 %. IMPRESSION: No scintigraphic evidence for reversible ischemia.
--- NOTE | 2020-05-30 19:42 | EST ---
EXERCISE STRESS DATE OF SERVICE: 05/30/2020 AGE: 64 SEX: Male HT: 75" WT: 300 PROTOCOL: Lexiscan Cardiolite STAGE: DURATION OF EXERCISE: HEART RATE REST: 56 BLOOD PRESSURE REST: 116/74 MAXIMUM HEART RATE ACHIEVED: 78 MAXIMUM BLOOD PRESSURE: 120/75 85% MPHR: 133 100% MPHR: 156 METS: INDICATIONS: Chest pain, difficulty in breathing. CLINICAL INFORMATION: STRESS DATA: Heart rate is 56, pressure 116/74 mmHg. Baseline EKG showed sinus mechanism. Lexiscan 0.4 mg was given over 15 seconds per protocol. Max heart rate was 78 beats per minute. Maximum pressure was 120/75 mmHg. Clinically the patient had no symptoms and the EKG did not show any significant ST or T-wave abnormalities concerning for ischemia. CONCLUSION: 1. Nondiagnostic electrocardiogram stress testing in response to Lexiscan. 2. Please follow up on the Cardiolite portion on separate report from Radiology Department. MMODL / IJN: [id number] /
== END | disposition home or self-care (01) ==
LOC: RADNMMAIN 08:45
PROVIDERS: ATTEND Family Medicine
DX: R07.9 Chest pain, unspecified (principal)
CPT/HCPCS: 93017; 78452; A9500; J2785

== ENCOUNTER → 2020-12-09 | Outpatient (CLI) | payer OTHER ==
[2020-12-09 15:11] LABS: Basophils # (A) 0.03 X 10*3/uL (0.00-0.10); Basophils % (A) 0.4 %; Eosinophils # (A) 0.15 X 10*3/uL (0.04-0.35); Eosinophils % (A) 2.2 %; HCT 47.2 % (39.6-50.0); HGB 15.6 g/dL (13.0-17.0); Lymphocytes # (A) 2.01 X 10*3/uL (0.90-5.00); Lymphocytes % (A) 29.4 %; MCH 33.6 pg (27.0-32.0); MCHC 33.1 g/dL (32.0-37.0); MCV 101.7 fL (80.0-97.0); Mean Platelet Volume 9.2 fL (9.5-12.2); Monocytes # (A) 0.48 X 10*3/uL (0.20-1.00); Neutrophils # (A) 4.13 X 10*3/uL (1.80-7.70); Neutrophils % (A) 60.6 %; Platelet Count 208 X 10*3/uL (140-440); RBC 4.64 X 10*6/uL (4.40-5.60); RDW 14.1 % (11.5-14.5); WBC 6.83 X 10*3/uL (4.50-10.00)
[2020-12-09 15:40] LABS: % Iron Saturation 55.12 (15.00-50.00); Chol/HDL Ratio 4.33; LDL Cholesterol,Calculated 131.8 mg/dL (0.0-131.0); Magnesium 1.9 mg/dL (1.5-2.4); VLDL Calculation 31.2 mg/dL (5.00-40.00)
[2020-12-09 16:06] LABS: African American GFR (CKD) 81.8 (60.0-200.0); Albumin 4.3 g/dL (3.80-4.90); Albumin/Globulin Ratio 1.79 (1.60-3.17); Anion Gap 8.8 mmol/L (4.00-12.00); BUN/Creat Ratio 11.82 Ratio (12.00-20.00); Calcium 8.9 mg/dL (8.7-10.3); Carbon Dioxide 20.2 mmol/L (21.6-31.8); Globulin 2.4 g/dL (1.6-3.3); Non-African American GFR(CKD) 70.6 (60.0-200.0); Potassium 5.3 mmol/L (3.5-5.5); Total Bilirubin 0.5 mg/dL (0.2-1.2); Total Protein 6.7 g/dL (6.2-8.2)
== END | disposition home or self-care (01) ==
LOC: LABWHC1 09:25
PROVIDERS: ATTEND Family Medicine
DX: I48.91 Unspecified atrial fibrillation (principal); G25.81 Restless legs syndrome; E78.6 Lipoprotein deficiency; E61.1 Iron deficiency
CPT/HCPCS: 36415; 80053; 80061; 82550; 83540; 83550; 83735; 84443; 85025

== ENCOUNTER → 2020-12-09 | Outpatient (CLI) | payer OTHER | END | disposition home or self-care (01) | LOC: LABPAT 09:27 | PROVIDERS: ATTEND Internal Medicine Interventional Cardiology | DX: Z53.9 Procedure and treatment not carried out, unspecified reason (principal) ==

== ENCOUNTER 2020-12-16 06:20 | Day surgery (SDC) | payer OTHER ==
[2020-12-12 15:53] VITALS: BMI 40.6
[~2020-12-16 06:20] MED LIST changes: +ALPRAZolam 0.25 MG TAB PO PRN; +ALPRAZolam 0.5 MG TAB PO PRN; +HEPARIN SODIUM,PORCINE 10,000 UNIT in SODIUM CHLORIDE 0.9% 1,000 ML IRRIGATION PRN; +NITROGLYCERIN SL TABS 0.4 MG TAB SUBLINGUAL PRN; -REGADENOSON 0.4 MG/5 ML SYRINGE IV ONE; +SODIUM CHLORIDE 0.9% 1,000 ML in EMPTY BAG 1 BAG IV ONE
[2020-12-16] MEDS ORDERED: SODIUM CHLORIDE 0.9% 1,000 ML IV ONE (06:40)
[2020-12-16] MEDS ORDERED: HEPARIN SODIUM,PORCINE 2,500 UNIT in SODIUM CHLORIDE 0.9% 250 ML IRRIGATION PRN (07:00)
[2020-12-16] MEDS ORDERED: ATORVASTATIN 80 MG TAB PO ONE (07:00)
[2020-12-16] MEDS ORDERED: ASPIRIN 325 MG TAB PO ONE (07:00)
[2020-12-16 07:06] VITALS: RESP 16; TEMP 97.3
[2020-12-16] MEDS ORDERED: MIDAZOLAM 2 MG/2 ML VIAL IV ONE ×2 (07:39)
[2020-12-16] MEDS ORDERED: LIDOCAINE 1% INJ 10MG/ML (20 ML MDV) SQ ONE (07:42)
[2020-12-16] MEDS ORDERED: VERAPAMIL SYRINGE (5 MG/10 ML) INTRAARTER ONE (07:45)
[2020-12-16] MEDS ORDERED: HEPARIN SODIUM 1,000 UN/ML (10ML VL) IV ONE (07:46)
[2020-12-16] MEDS ORDERED: IOPAMIDOL-370 100ML BTL INJ ONE (08:03)
[2020-12-16] MEDS ORDERED: SODIUM CHLORIDE 0.9% 1,000 ML IV SCH (09:00)
--- NOTE | 2020-12-16 09:00 | CC ---
CARDIAC CATHETERIZATION REPORT DATE OF SERVICE: 12/16/2020. PROCEDURE: Left heart catheterization and coronary angiography. PERFORMED BY: Dr. Ginna Tirado. Moderate conscious sedation time was 18 minutes. Patient was administered Versed. Oxygen saturation, hemodynamics and EKG were monitored closely. CLINICAL INFORMATION: Mr. Shah is a 64-year-old gentleman with a history of obstructive sleep apnea, paroxysmal atrial flutter, status post ablation, known paroxysmal atrial fibrillation, hypertension, and hyperlipidemia. He has noncritical CAD by catheterization 4 years ago. He came into the office complaining of chest pressure, heaviness with activity with symptoms suggestive angina. He was therefore advised cardiac cath after due discussion regarding risks, benefits, and options. PROCEDURE NOTE: Under local anesthesia and strict aseptic precautions, a 6-[place] introducer was placed in the right radial artery. I used a JL4 and JR4 catheters of 5-[place] caliber and the same right catheter was used to check LV pressures. LV gram was not performed. The sheath was taken out and TR band applied as per protocol. Saturation of the fingers of the right hand was 93%. The patient tolerated procedure well without complication. The details and results were discussed with the patient and . CARDIAC CATHETERIZATION FINDINGS: The left ventricular end-diastolic pressure was 9 mmHg without any gradient across the aortic valve. CORONARY ANGIOGRAPHY FINDINGS: RIGHT CORONARY ARTERY: Dominant vessel, has minor irregularities. No significant disease. Distally it bifurcates into a large PDA and a smaller PLV branch. RCA has about 30% to 35% narrowing. No significant disease. LEFT MAIN CORONARY ARTERY: Short patent vessel. Free of significant disease. Bifurcates into LAD and circumflex. LEFT ANTERIOR DESCENDING CORONARY ARTERY: Good caliber vessel extends along the anterior wall, gives off septal and diagonal branches. There are at least 2 good-sized diagonal branches that are free of significant disease. LAD has minor irregularities, no more than 30% to 35%, but there is mild to moderate calcification noted. LEFT POSTERIOR CIRCUMFLEX CORONARY ARTERY: Nondominant vessel. In the midportion, there is a 40% narrowing, unchanged from before and then the vessel bifurcates into 2 branches, one is an obtuse marginal. The other one continues as a posterolateral branch. There are minor irregularities. No significant disease in the circumflex other than the 40% mid circumflex which was seen before in 2017 also. LEFT VENTRICULOGRAM: Left ventriculogram was not performed. FINAL IMPRESSION: This patient has a right dominant system. Normal filling pressures. No gradient. There is a 40% mid circumflex lesion and also 30% to 35% RCA and LAD lesions. There is mild to moderate calcification. No gradient and normal filling pressures. RECOMMENDATIONS: Findings were discussed with the patient and . Continued medical therapy with risk factor modification advised. Patient will be discharged later on today and I will see him in the office on December 18 at 1:30 p.m. in my [facility]. HANNY / TYEN: [id number] /
[2020-12-16 15:04] VITALS: BP 137/69; PULSE 75
== END 2020-12-16 14:49 | disposition home or self-care (01) ==
LOC: CATHCVL 06:20
PROVIDERS: ATTEND Internal Medicine Interventional Cardiology
DX: I25.110 Atherosclerotic heart disease of native coronary artery with unstable angina pectoris (principal); I25.84 Coronary atherosclerosis due to calcified coronary lesion; I10 Essential (primary) hypertension; E78.00 Pure hypercholesterolemia, unspecified; F17.210 Nicotine dependence, cigarettes, uncomplicated; G47.33 Obstructive sleep apnea (adult) (pediatric); J44.9 Chronic obstructive pulmonary disease, unspecified; E78.5 Hyperlipidemia, unspecified; I48.0 Paroxysmal atrial fibrillation; Z91.19 Patient's noncompliance with other medical treatment and regimen; E66.01 Morbid (severe) obesity due to excess calories; Z68.39 Body mass index [BMI] 39.0-39.9, adult; Z79.01 Long term (current) use of anticoagulants
CPT/HCPCS: 93458; C1769; C1894; J2250; J2001; J1644; Q9967

== ENCOUNTER 2021-03-26 08:36 | Day surgery (SDC) | payer OTHER ==
[2021-03-23 15:36] VITALS: BMI 37.5
[~2021-03-26 08:36] MED LIST changes: -ALPRAZolam 0.25 MG TAB PO PRN; -ALPRAZolam 0.5 MG TAB PO PRN; +DEXAMETHASONE SOD PHOSPHATE 4 MG/ML 1 ML VIAL IV ONE; +DEXAMETHASONE SOD PHOSPHATE 4 MG/ML 1 ML VIAL IV PRN; +FAMOTIDINE 20 MG/2 ML VIAL IV PRN; -HEPARIN SODIUM,PORCINE 10,000 UNIT in SODIUM CHLORIDE 0.9% 1,000 ML IRRIGATION PRN; +HYDROmorphone 0.5 MG/0.5 ML SYRINGE IVP PRN; +LACTATED RINGERS 1,000 ML IV SCH; +LIDOCAINE 1% (10MG/ML) FOR IV START INTRADERMA PRN; +MIDAZOLAM 2 MG/2 ML VIAL IV PRN; -NITROGLYCERIN SL TABS 0.4 MG TAB SUBLINGUAL PRN; +ONDANSETRON 4 MG/2 ML VIAL IVP ONE; +ONDANSETRON 4 MG/2 ML VIAL IVP PRN; -SODIUM CHLORIDE 0.9% 1,000 ML in EMPTY BAG 1 BAG IV ONE
[2021-03-26 09:30] VITALS: RESP 16
[2021-03-26 09:37] LABS: Glucose,Whole Blood 119 mg/dL (75-99)
[2021-03-26 11:22] LABS: Basophils % (A) 0 %; Eosinophils # (A) 0.1 k/uL (0-0.7); Eosinophils % (A) 1 %; HCT 43.2 % (39.0-53.0); HGB 15.2 gm/dL (13.0-17.5); Lymphocytes # (A) 1.7 k/uL (1.0-4.8); Lymphocytes % (A) 21 %; MCH 35.2 pg (25.0-35.0); MCHC 35.1 g/dL (31.0-37.0); MCV 100.4 fL (80.0-100.0); Mean Platelet Volume 6.8; Monocytes # (A) 0.5 k/uL (0-1.0); Monocytes % (A) 6 %; Neutrophils % (A) 71 %; Platelet Count 187 k/uL (150-450); RDW 13.5 % (11.5-15.5); WBC 8.4 k/uL (3.8-10.6)
[2021-03-26 11:27] LABS: Potassium 4.7 mmol/L (3.5-5.1)
[2021-03-26] MEDS ORDERED: LIDOCAINE 1% INJ 10MG/ML (20 ML MDV) ONE (11:37)
[2021-03-26] MEDS ORDERED: PHENYLEPHRINE-0.9% NACL SYG 1,000 MCG/10 ML SYRINGE ONE (11:37)
[2021-03-26] MEDS ORDERED: ATROPINE SULFATE 0.1 MG/ML 10ML SYRINGE ONE (11:37)
[2021-03-26] MEDS ORDERED: fentaNYL (PF) 50 MCG/ML 2 ML AMP ONE (11:37)
[2021-03-26] MEDS ORDERED: ePHEDrine SULFATE/0.9% NACL/PF 50 MG/5 ML SYRINGE IV ONE (11:37)
[2021-03-26] MEDS ORDERED: PROPOFOL 10 MG/ML 20 ML VIAL IV ONE (11:37)
[2021-03-26] MEDS ORDERED: ROCURONIUM 10 MG/ML (5 ML VIAL) IV ONE (11:37)
[2021-03-26] MEDS ORDERED: MIDAZOLAM 2 MG/2 ML VIAL ONE (11:37)
[2021-03-26] MEDS ORDERED: SUCCINYLCHOLINE CHLORIDE VIAL 200 MG/10 ML VIAL IV ONE (11:37)
[2021-03-26] MEDS ORDERED: LIDOCAINE 1%-EPI 1:100,000 20 ML VIAL SQ ONE (12:18)
[2021-03-26] MEDS ORDERED: LACTATED RINGERS 1,000 ML IV ONE ×2 (12:26→14:14)
[2021-03-26 14:31] VITALS: TEMP 97.6
--- NOTE | 2021-03-26 14:40 | P.OP ---
Date of Procedure: 03/26/21 Preoperative Diagnosis: Left parotid mass deep lobe Postoperative Diagnosis: Same Procedure(s) Performed: Left parotidectomy of deep lobe parotid mass with facial nerve monitoring utilizing a nerve integrity monitor Anesthesia: ELIFA Surgeon: Mata Ram Estimated Blood Loss (ml): 20 Pathology: other Condition: stable (Left parotid) Disposition: PACU Indications for Procedure: This patient presented to the office is a 65-year-old white male was found to have a left parotid mass. 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 All risks, benefits, and alternative therapies were discussed in detail. Risks of bleeding, infection, need for secondary surgery etc. etc. Consent was obtained and all questions were answered. Operative Findings: Deep lobe left parotid mass completely removed Description of Procedure: This patient was taken to the operative room and placed in the supine position and a slight reverse Trendelenburg. The nerve integrity monitor was attached and we utilized the nerve integrity monitor throughout the entire case for verification of facial nerve positioning. The LEFT PAROTID was the side of the surgery. The neck was sterilely prepped and draped in usual fashion. With use of a skin marker the incision was marked as a modified Natan incision. The subcutaneous tissue along the incision was injected with lidocaine 1% with epinephrine 1 100,000. Approximately 10 minutes were allowed wait for full vasoconstrictive effects to take place. An incision was made with a 15 blade in the usual fashion. Anterior and posterior skin flaps were developed. The anterior skin flap was sutured forward. We then continued our dissection and the parotid gland from the sternocleidomastoid muscle with care to keep the facial vein intact. The greater auricular nerve was identified and we attempted to maintain as many of the nerve fibers as possible during this dissection. We dissected down following the pointer cartilage to the main branch of the facial nerve and dissected all the branches. We utilized a NIM monitor and probe for this dissection and we continued to utilize this during the dissection for confirmation of the nerve integrity. After dissecting the branch of the facial nerve the tumor was identified and dissected free. We remove the tumor completely. Hemostasis was excellent. We irrigated with copious amount of irrigation. No bleeding was identified. We inserted gelfoam and FloSeal. We closed the parotid masseteric fascia with 4-0 Vicryl. We closed the deep subcutaneous tissue with 4-0 Vicryl and 4-0 Monocryl. We closed the skin with a 5-0 Prolene in a running nonlocking fashion. Steri-Strips and a compression dressing was placed. Patient was taken to postanesthesia recovery in excellent condition and the patient tolerated this well. Follow-up will be in the office in 1 week for recheck.
[2021-03-26 16:31] VITALS: BP 94/61; PULSE 73
== END 2021-03-26 17:21 | disposition home or self-care (01) ==
LOC: OR 08:36
PROVIDERS: ATTEND Otolaryngology
DX: D11.0 Benign neoplasm of parotid gland (principal); I25.10 Atherosclerotic heart disease of native coronary artery without angina pectoris; E11.51 Type 2 diabetes mellitus with diabetic peripheral angiopathy without gangrene; F17.210 Nicotine dependence, cigarettes, uncomplicated; I10 Essential (primary) hypertension; F41.9 Anxiety disorder, unspecified; E78.5 Hyperlipidemia, unspecified; I48.91 Unspecified atrial fibrillation; M19.90 Unspecified osteoarthritis, unspecified site; G47.33 Obstructive sleep apnea (adult) (pediatric); Z79.899 Other long term (current) drug therapy; Z79.01 Long term (current) use of anticoagulants
CPT/HCPCS: 80051; 85025; 42415; J2250; J0330; J1100; J2405; J0690; J2001; J0461; J3010; J2370; J2704; J1170; 88307